=== PATIENT | female | born 2000 | race Caucasian/White ===

== ENCOUNTER 2019-01-06 22:49 | Emergency (ER) | payer BC ==
[~2019-01-06] VITALS: Ht 154.9 cm; Wt 73.6 kg
[2019-01-06 22:54] VITALS: BP 124/83
--- NOTE | 2019-01-06 23:30 | NUR ---
Patient/Caregiver given discharge instructions and they have confirmed that they understand the instructions. Patient ambulatory with steady gait.
== END 2019-01-06 23:30 | disposition home or self-care (01) ==
LOC: ED 23:26
DX: H60.311 Diffuse otitis externa, right ear (principal)
CPT/HCPCS: 99283